=== PATIENT | female | born 2000 | race African-American/Black ===

== ENCOUNTER 2025-09-01 08:32 | Emergency (ER) | payer SELFPAY ==
[~2025-09-01] VITALS: Ht 172.7 cm; Wt 118.0 kg
[2025-09-01 08:42] VITALS: O2SAT 98
[2025-09-01 09:04] LABS: BASOPHILS % 0.7 % (0.0-2.0); EOSINOPHILS % 1.3 % (0.0-5.0); HEMATOCRIT. 38.6 % (36.0-48.0); HEMOGLOBIN. 12.8 g/dL (12.0-16.0); LYMPHOCYTES % 27.0 % (20.0-50.0); MEAN PLATELET VOLUME 8.3 fl (7.4-10.4); MONOCYTES % 10.1 % (2.0-8.0); NEUTROPHILS % 60.9 % (40.0-76.0); PLATELET 218 x1000/uL (130-400); RED BLOOD CELL COUNT 4.59 mill/uL (4.2-5.4); RED CELL DISTRIBUTION WIDTH 14.4 % (11.6-14.6)
[2025-09-01 09:17] LABS: CREATININE 0.8 mg/dL (0.6-1.0); UREA NITROGEN BLOOD 7 mg/dL (9-23)
[2025-09-01 09:18] LABS: PROTEIN TOTAL 7.0 g/dL (6.0-8.3)
[2025-09-01 09:19] LABS: ASPARTATE AMINOTRANSFERASE 17 IU/L (<34); BILIRUBIN DIRECT 0.1 mg/dL (<=3.0); BILIRUBIN TOTAL 0.4 mg/dL (0.1-1.0)
[2025-09-01] MEDS: ACETAMINOPHEN 500MG TABLET PO ONE (09:22)
[2025-09-01] MEDS: ONDANSETRON 4MG ODT PO ONE (09:22)
[2025-09-01] MEDS: MAGNESIUM/ALUMINUM HYDROXIDE/SIMETHICONE 30ML UDC PO ONE (09:23)
[2025-09-01] MEDS: FAMOTIDINE 20MG TABLET PO ONE (09:24)
[2025-09-01 10:13] LABS: HCG SCREEN NEGATIVE
[2025-09-01 10:15] LABS: CLARITY URINE CLOUDY (CLEAR); COLOR URINE DARK YELLOW (YELLOW); GLUCOSE URINE NEGATIVE (NEGATIVE); KETONES URINE NEGATIVE (NEGATIVE); LEUKOCYTE ESTERASE URINE NEGATIVE (NEGATIVE); NITRITE URINE NEGATIVE (NEGATIVE); OCCULT BLOOD URINE TRACE (NEGATIVE); PH URINE 8.5 (4.5-8.0); PROTEIN URINE TRACE (NEGATIVE); SPECIFIC GRAVITY URINE 1.025 (1.005-1.030); UROBILINOGEN URINE 0.2 E.U./dL (0.2-1.0)
[2025-09-01] MEDS ORDERED: MAG355OR21 MT (10:27)
[2025-09-01] MEDS ORDERED: FAMO-135 MT (10:27)
[2025-09-01 10:42] LABS: TRIPLE PHOSPHATE CRYSTAL URINE 4+ /lpf
[2025-09-01 10:43] LABS: BACTERIA URINE 3+; MUCUS URINE TRACE /lpf (< = 2+); SQUAMOUS EPITHELIAL CELL URINE 3+ /lpf (RARE/1+)
[2025-09-01 10:44] LABS: WBC URINE 0-2 /hpf (0-2)
[2025-09-01 10:45] LABS: RBC URINE NONE SEEN /hpf (0-2)
[2025-09-01 10:47] VITALS: BP 125/79; PULSE 62; RESP 18; TEMP 36.8; O2SAT 100
== END 2025-09-01 10:49 | disposition home or self-care (01) ==
LOC: ER 08:32
DX: K21.9 Gastro-esophageal reflux disease without esophagitis (principal); Z79.899 Other long term (current) drug therapy
CPT/HCPCS: 99284; 74176; 80076; 80048; 81003; 81025; 84703; 83690; 83735; 85025; 36415; Q0162